=== PATIENT | female | born 1990 | race Caucasian/White ===

== ENCOUNTER 2016-11-08 12:47 | Emergency (ER) | payer OTHER ==
[~2016-11-08] VITALS: Wt 64.0 kg
[~2016-11-08 12:47] MED LIST: ALBU8.5H3 INH; PARO20TA58 PO; PROP50TA2 PO; RANI150C11 PO; RANI150T9 PO
[2016-11-08] MEDS ORDERED: ACETAMINOPHEN 325 MG TAB PO STA (14:13)
[2016-11-08 14:36] LABS: ADD UMIC YES; BASOPHILS % 0.3 % (0.0-2.0); EOSINOPHILS % 0.1 % (0.0-7.0); HEMATOCRIT 33.9 % (37.0-47.0); HEMOGLOBIN 11.4 g/dl (12.0-16.0); LYMPHOCYTES # 1.6 10^3/ul (0.8-2.9); LYMPHOCYTES % 31.9 % (15.0-51.0); MEAN CORPUSCULAR HEMOGLOBIN 26.5 pg (29.0-33.0); MEAN CORPUSCULAR HGB CONC 33.6 g/dl (32.0-37.0); MEAN CORPUSCULAR VOLUME 78.9 fl (82.0-101.0); MEAN PLATELET VOLUME 7.4 fl (7.4-10.4); MONOCYTE # 0.3 10^3/ul (0.3-0.9); MONOCYTES % 5.8 % (0.0-11.0); NEUTROPHILS % 61.9 % (39.0-77.0); PLATELET COUNT 298 10^3/UL (140-440); UNCORRECTED WBC 4.9 10^3/ul (4.8-10.8); URINE BILIRUBIN (Dip) NEGATIVE (NEGATIVE); URINE BLOOD (Dip) NEGATIVE (NEGATIVE); URINE COLOR LT. YELLOW (YELLOW); URINE GLUCOSE (Dip) NEGATIVE (NEGATIVE); URINE KETONES (Dip) NEGATIVE (NEGATIVE); URINE LEUKOCYTE ESTERASE (Dip) TRACE (NEGATIVE); URINE NITRITE (Dip) NEGATIVE (NEGATIVE); URINE TOTAL PROTEIN (Dip) NEGATIVE (NEGATIVE); URINE UROBILINOGEN (Dip) 0.2 E.U./dL (0.1-1.0); WHITE BLOOD COUNT 4.9 10^3/ul (4.8-10.8)
[2016-11-08 14:40] LABS: CONDITION 1; LH ANALYZER COMMENTS 1
[2016-11-08 14:42] LABS: URINE RBCS 0-2 /HPF (0)
--- NOTE | 2016-11-08 15:07 | RADRPT ---
PROCEDURE: US Pelvis. CLINICAL INDICATION: vaginal bleeding TECHNIQUE: Multiple sonographic images of the pelvis were obtained utilizing a transabdominal and endovaginal technique. The images were reviewed on a PACS workstation. COMPARISON: None. FINDINGS: There is a small cystic structure within the endometrium measuring 0.7 cm which would correspond to a calculated gestational age of 5 weeks and 2 days. No pole is yet visualized. There is a yolk sac seen. There is a 2.1 x 1.1 cm hypoechoic area adjacent to the gestational sac, consistent with subchorioni c hemorrhage. The right ovary measures 2.9 x 2.2 x 2.3 cm. There is a hemorrhagic cyst in the right ovary measurin g 1.8 cm. The left ovary measures 2.9 x 1.6 x 1.5 cm. Normal Doppler flow is seen to the ovaries. No significant free fluid is present within the pelvis. RPTAT: AA IMPRESSION: Possible early intrauterine at 5 weeks and 2 days. Large area of subchorionic hemorrhage noted. Right ovarian corpus luteum cyst. Close followup ultrasound and hCG is recommended. .Elpidio Russell MD, Date Time Electronically viewed and signed by .Elpidio Russell MD, on 11/08/2016 15:06 .S/
[2016-11-08] MEDS ORDERED: CEPH-443 PO (15:23)
[2016-11-08] MEDS ORDERED: ACET500C5 PO (15:23)
[2016-11-08] MEDS ORDERED: PRENAT PO (15:24)
[2016-11-08] MEDS ORDERED: CEPHALEXIN 500 MG CAP PO ONE (15:30)
--- NOTE | 2016-11-20 18:15 | ERD ---
ER Documentation Chief Complaint Date/Time DATE: 11/20/16 TIME: 18:07 Chief Complaint lower abdominal pain with no vag bleeding noted. for a few days HPI 26f with dysuria, slight vag spot , suprapubic pain for 3 days. no fever, right lower or upper abd pain. no vomit. pt approximately 5 weeks pregnat by dates ROS All systems reviewed and are negative except as per history of present illness. Medications Home Meds Active Scripts Multivit/Min/Fol Ac/Iron/Pren* ( S*) 1 Tab Tab, 1 TAB PO DAILY, #90 TAB Prov:SÁNCHEZ SALDANA MD 11/08/16 Acetaminophen* (Tylophen*) 500 Mg Capsule, 1 CAP PO Q6H Y for PAIN AND OR ELEVATED TEMP, #15 CAP Prov:SÁNCHEZ SALDANA MD 11/08/16 Cephalexin* (Keflex*) 500 Mg Capsule, 500 MG PO QID for 5 Days, CAP Prov:SÁNCHEZ SALDANA MD 11/08/16 Albuterol Sulfate* (Proair HFA*) 8.5 Gm Hfa.aer.ad, 2 PUFF INH Q4, #1 INHALER Prov:ANA HUTSON PA-C 09/30/16 Ranitidine Hcl* (Zantac*) 150 Mg Tablet, 150 MG PO BID Y for EPIGASTRIC PAIN, # 30 TAB Prov:ANA HUTSON PA-C 09/30/16 Reported Medications Ranitidine Hcl (Ranitidine Hcl) 150 Mg Capsule, PO BID 04/12/14 Paroxetine Hcl* (Paxil*) 20 Mg Tablet, PO DAILY 04/12/14 Propylthiouracil* (Propylthiouracil*) 50 Mg Tablet, 100 MG PO BID 04/12/14 Allergies Allergies: Coded Allergies: No Known Allergy (Unverified , 11/08/16) PMhx/Soc History of Surgery: Yes (, gallbladder) Anesthesia Reaction: No Hx Neurological Disorder: No Hx Respiratory Disorders: No Hx Cardiac Disorders: No Hx Psychiatric Problems: Yes (ANXIETY, DEPRESSION) Hx Miscellaneous Medical Probl: No Hx Alcohol Use: No Hx Substance Use: No Hx Tobacco Use: No Smoking Status: Never smoker Physical Exam Physical Exam Const: []alert no ill appearing Head: Atraumatic Eyes: Normal Conjunctiva ENT: Normal External Ears, Nose and Mouth. Neck: Full range of motion..~ No meningismus. Resp: Clear to auscultation bilaterally Cardio: Regular rate and rhythm, no murmurs Abd: Soft, minimal tender lower abd, non distended. Normal bowel sounds Skin: No petechiae or rashes Back: No midline or flank tenderness Ext: No cyanosis, or edema Neur: Awake and alert Psych: Normal Mood and Affect Results 24 hrs Laboratory Tests Test 11/08/16 14:20 Basophils # 0.010^3/ul Basophils % 0.3% Beta HCG, Quantitative 4486.1mIU/ml Blood Morphology Comment Eosinophils # 0.010^3/ul Eosinophils % 0.1% Hematocrit 33.9% Hemoglobin 11.4g/dl Lymphocytes # 1.610^3/ul Lymphocytes % 31.9% Mean Corpuscular Hemoglobin 26.5pg Mean Corpuscular Hemoglobin Concent 33.6g/dl Mean Corpuscular Volume 78.9fl Mean Platelet Volume 7.4fl Monocytes # 0.310^3/ul Monocytes % 5.8% Neutrophils # 3.010^3/ul Neutrophils % 61.9% Nucleated Red Blood Cells # 0.010^3/ul Nucleated Red Blood Cells % 0.0/100WBC Platelet Count 49913^3/UL Red Blood Count 4.3010^6/ul Red Cell Distribution Width 15.0% Urine Bilirubin NEGATIVE Urine Clarity CLEAR Urine Color LT. YELLOW Urine Glucose NEGATIVE% Urine Hemoglobin NEGATIVE Urine Ketones NEGATIVE Urine Leukocyte Esterase TRACE Urine Microscopic RBC 0-2/HPF Urine Microscopic WBC 0-2/HPF Urine Nitrite NEGATIVE Urine Specific Felt >=1.030 Urine Total Protein NEGATIVE Urine Urobilinogen 0.2 E.U./dL Urine pH 5.5 White Blood Count 4.910^3/ul Current Medications Medications (Trade) Dose Ordered Sig/[place] Route PRN Reason Start Time Stop Time Status Last Admin Dose Admin Acetaminophen (Tylenol Tab) 650 mg ONCE STAT PO 11/08/16 14:13 11/08/16 14:15 DC 11/08/16 14:17 Cephalexin (Keflex) 500 mg ONCE ONCE PO 11/08/16 15:30 11/08/16 15:31 DC 11/08/16 15:28 Procedures/MDM hcg 4000, ultrasound shows possible five week and subchorionic hemorrhage.pt is rh positive. cbc shows no acute abnormalities. differential includes ectopic, early normal , threatened . pt will be treated for uti given findings on UA. no current ectopic noted but pt will instructed to have 2 days repeat hcg and exam. no current evidence of appendicitis, acute abdomen, sepsis, pyelo. Departure Diagnosis: Primary Impression: UTI (urinary tract infection) Urinary tract infection type: acute cystitis Hematuria presence: without hematuria Qualified Code: N30.00 - Acute cystitis without hematuria Additional Impression: Abdominal pain Abdominal location: lower abdomen, unspecified Qualified Code: R10.30 - Lower abdominal pain Condition: Stable Patient Instructions: Understanding Urinary Tract Infections (UTIs), Abdominal Pain, Early Referrals: [place] [address] [facility] [address] [place] [address] OFFICE FAX [facility] [address] [place] [address] [facility] [address] [place] [address] [address] [facility] [address] [facility] [facility] [address] [address] [facility] [address] [place] [address] [facility] [address] [place] [address] [facility] [id number] [address] [facility] [address] [address] [address] [facility], [facility] [address] [address] [address] [place] [address] Additional Instructions: Ultrasound shows likely early but very early. Recommend repeat hormone level in the examinations in 48 hours. Recheck sooner for bleeding, fevers, new or worsening symptoms. See OB for follow-up otherwise. SÁNCHEZ SALDANA MD Nov 20, 2016 18:15
== END 2016-11-08 15:50 | disposition home or self-care (01) ==
LOC: FTE 12:47
DX: O23.11 Infections of bladder in pregnancy, first trimester (principal); R10.30 Lower abdominal pain, unspecified; R10.2 Pelvic and perineal pain
CPT/HCPCS: 76801; 76817; 81001; 84702; 85025; 86900; 86901; Z7610; 36415; 81003